=== PATIENT | male | born 1990 | race Caucasian/White ===

== ENCOUNTER 2016-07-29 05:37 | Day surgery (SDC) | payer BC ==
--- NOTE | ~2016-07-29 | OP ---
Record Of Operation [facility] [address] [place]. [address] NAME: JUNO IVEY : [birth year] STATUS : [facility]#: [id number] AGE: 26 ADM/REG DATE : 07/29/16 MR#: [id number] REPORT SERV DATE: 07/31/16 DICTATED BY: PRASHANT WHEAT II DATE: 07/31/16 REPORT STATUS : Draft TRANSCRIBED BY: DANIEL DATE: 07/31/16 DATE OF PROCEDURE: 07/29/2016 PREOPERATIVE DIAGNOSIS: Recurrent herniated nucleus pulposus, L3-4, L4-5, with recurrent stenosis, with an element of congenital stenosis. POSTOPERATIVE DIAGNOSIS: Recurrent herniated nucleus pulposus, L3-4, L4-5, with recurrent stenosis, with an element of congenital stenosis. PROCEDURE: 1. L3-4 and L4-5 laminectomy. 2. Microdiskectomy L3-L4, right, revision. 3. Use of the microscope and stereotactic spinal imaging. SURGEON: Prashant Wheat M.D. ANTIBIOTICS: Preoperatively. COMPLICATIONS: None. FINDINGS: 1. Inferior facet fracture, (L3). 2. A large recurrent HNP at L3-L4. PREOPERATIVE HISTORY: This is a friendly 26-year-old gentleman, who works at [email or web address]. He was struggling with severe pain, and underwent surgery and did very well, he reports for 10 days. He reports a significant improvement in his buttock and leg pain. Unfortunately, the pain returned severely and a repeat MRI showed some persistence of his congenital stenosis, which we were aware of from his previous MRI. He also had showing evidence of a very large recurrence of disk at L3-4 in particular. There was some recurrent disk material at L4-5, but not as severe. We discussed again the risks of surgery and the benefits. He was miserable and wanted something to be done. We discussed the fact that again he does have significant degenerative disk disease at L3-4 and L4-5 despite his relatively young age. We discussed again, he may require a fusion down the road. DESCRIPTION OF PROCEDURE: After informed consent was obtained, the patient was brought to the operating room at his request, and general anesthesia was achieved. He was placed in a prone position and the back was prepped and draped in a sterile fashion. The stereotactic spinal pin was placed into the left iliac crest and the intraoperative CT scan was completed. Stereotactic guidance was then used throughout the remainder of the case. Next, the minimally invasive incision was performed on the right at L3-4 and L4-5. We used a separate incision for healing purposes. At this point, the quadrant retractor was placed at L3-4 and L4-5. The microscope was brought into place. Intraoperative CT scan did reveal Record Of Operation [address] [place]. [address] NAME: JUNO IVEY : [birth year] STATUS : [facility]#: [id number] AGE: 26 ADM/REG DATE : 07/29/16 MR#: [id number] REPORT SERV DATE: 07/31/16 DICTATED BY: PRASHANT WHEAT II DATE: 07/31/16 REPORT STATUS : Draft TRANSCRIBED BY: DANIEL DATE: 07/31/16 a fracture of the inferior facet of L3. This was largely held in place by the capsule, but during the revision decompression portions of the facet, became much more loose, and were ultimately removed. This did not appear to cause any obvious instability, although, we will need to be on look out for this in the future. At this point, the L4 nerve root was identified. Prior to any disk work, we then overall performed a more generous laminectomy. We did this through the unilateral approach with the Kerrison rongeurs and the curettes. We were able to then angle the table to also assist with the more generalized unroofing of the L3-4 level. The dura was then well decompressed centrally. Next at this point, we performed the separate procedure which is the diskectomy. There was a significantly large piece of disk extruded, severely compressing the anterior portion of the thecal sac, and the L4 nerve root. At this point, we then remove several large pieces of disk. We then enter the disk space with pituitary rongeurs and removed several other fragments of disk. At this point, we then worked down to the L4-5 level. The disk recurrence was rather minimal. We however did again perform a revision laminectomy to get overall the canal more space. We at this point, again used the unilateral approach to remove additional lamina and spinal laminar junction. This overall afforded more space to the canal and the sac. At this point, irrigation was performed and hemostasis was achieved, followed by standard closure. Standard dressings were applied. The patient was then extubated and transferred to PACU in stable condition. I then spoke at length with the patient's girlfriend and his parents. We again discussed the intraoperative procedure, findings, and again the overall situation regarding these two levels. PAULINO/DANIEL Prashant Wheat II, M.D. / [id number] CC: Prashant Wheat II, M.D.
[~2016-07-29 05:37] MED LIST: ADVIL PO; ENDOCET1 TA3 PO; NEUR400 PO; V5 PO
[2016-09-02] MEDS ORDERED: NEUR600 PO (22:33)
[2016-09-02] MEDS ORDERED: PERCOCET 10/3251 TAB PO (22:34)
[2016-09-10] MEDS ORDERED: NEUR300 PO (16:10)
[2016-09-10] MEDS ORDERED: V5 PO (16:11)
[2016-09-10] MEDS ORDERED: ROXICODONE30 MG PO (16:11)
[2016-09-10] MEDS ORDERED: MSCONTIN PO (16:12)
== END 2016-07-29 12:57 | disposition home or self-care (01) ==
LOC: SDC 05:37
PROVIDERS: Orthopaedic Surgery
PROC: 01NB0ZZ Release Lumbar Nerve, Open Approach (ICD-10-PCS; principal; 2016-07-29 07:00)
DX: M51.16 Intervertebral disc disorders with radiculopathy, lumbar region (principal); M48.06 Spinal stenosis, lumbar region; Z79.899 Other long term (current) drug therapy; Z98.890 Other specified postprocedural states; F17.210 Nicotine dependence, cigarettes, uncomplicated
CPT/HCPCS: 88304; 88311; A9270-GY; J0690; J1030; J1170; J1885; J2250; J2270; J2405; J2710; J3010